=== PATIENT | female | born 1970 | race Caucasian/White ===

== ENCOUNTER → 2022-08-21 10:19 | Outpatient (CLI) | payer OTHER, SELFPAY ==
--- NOTE | 2022-08-21 10:22 | DI.RAD.S_ITS ---
PROCEDURE: XR LUMBAR SPINE MIN 4V INDICATIONS: Right greater than left lumbar radiculopathy TECHNIQUE: Five views of the lumbar spine with obliques. COMPARISON: None. FINDINGS: Bones: There are 5 lumbar type vertebral bodies. The posterior fusion hardware is present from L4-S1. 5 millimeters of L5 on S1 anterolisthesis. Mild overall spondylosis at the other spinal levels. No pars defects identified on oblique views. Hardware obscures evaluation of the lumbosacral junction on oblique views. Soft tissues: Overlying bowel gas pattern is normal. No suspicious soft tissue calcifications. IMPRESSION: L4-S1 posterior fusion hardware in place. Overall mild spondylosis at the other levels. 5 millimeter L5 on S1 anterolisthesis. If there is high concern for further derangement, consider MRI evaluation. Dictated by: Eros Boland M.D. on 08/21/2022 at 13:22 Approved by: Eros Boland M.D. on 08/21/2022 at 13:25
== END ==
PROVIDERS: PCP Family Medicine; Referring Provider Physical Medicine & Rehabilitation; Visit Provider Physical Medicine & Rehabilitation
DX: M47.26 Other spondylosis with radiculopathy, lumbar region (principal); M43.17 Spondylolisthesis, lumbosacral region; Z98.1 Arthrodesis status
CPT/HCPCS: 72110